=== PATIENT | female | born 1940 | race Caucasian/White ===

== ENCOUNTER → 2019-08-02 | Outpatient (CLI) | payer OTHER ==
[~2019-08-02] MED LIST: ALLEGRA-D 12 H1 EAC1 PO; ATENOLOL 100MG100 MG PO; ECOTRIN325 MG PO; LIPITOR10 MG PO; LOSARTAN-HCTZ1 EAC3 PO; MACROBID 100 M100 M2 PO; OMEPRAZOLE 20 M20 M1 PO
== END ==
LOC: NUC 09:53
DX: M85.88 Other specified disorders of bone density and structure, other site (principal)